=== PATIENT | female | born 1945 | race Caucasian/White ===

== ENCOUNTER → 2016-10-15 10:13 | Outpatient (CLI) | payer MEDICARE, OTHER | END | disposition home or self-care (01) | LOC: D.LAB 10:13 | DX: R15.2 Fecal urgency (principal) ==

== ENCOUNTER → 2019-10-08 11:10 | Outpatient (CLI) | payer MEDICARE, OTHER | END | disposition home or self-care (01) | LOC: D.LAB 11:10 | PROVIDERS: ATTEND Emergency Medicine | DX: R15.2 Fecal urgency (principal) ==

== ENCOUNTER → 2019-12-08 10:22 | Outpatient (CLI) | payer MEDICARE, OTHER | END | disposition home or self-care (01) | LOC: D.RAD 10:00 | PROVIDERS: ATTEND Emergency Medicine | DX: R19.7 Diarrhea, unspecified (principal); A04.72 Enterocolitis due to Clostridium difficile, not specified as recurrent; Z86.010 Personal history of colon polyps ==